=== PATIENT | female | born 1965 | race Caucasian/White ===

== ENCOUNTER 2021-04-12 13:46 | Emergency (ER) | payer SELFPAY ==
[~2021-04-12] VITALS: Ht 170.2 cm; Wt 66.7 kg
[~2021-04-12 13:46] MED LIST: ABILIFY5 MG PO; ASPIRIN325 MG PO; BUSPIRONE HCL15 MG PO; CARAFATE1 GM PO; CYCLOBENZAPRINE10 MG PO; DULOXETINE HCL60 MG PO; FOLIC ACID0.8 M1 PO; LAMICTAL100 MG PO; MINIPRESS1 MG PO; NEURONTIN300 MG PO; NORCO 5-325 TA1 EACH PO; OMEPRAZOLE40 MG PO; PERCOCET 5-3251 EACH PO; PRAVASTATIN SOD40 MG PO; PRINIVIL10 MG PO; PROAIR HFA8.5 GM INH; SALAGEN5 MG PO; TRAZODONE 50MG50 MG PO; ZANTAC150 MG PO
[2021-04-12 14:39] LABS: BASOPHIL 0.4 % (0-2); EOSINOPHIL 1.4 % (0-5); HCT 39.9 % (37.0-47.0); HGB 13.1 g/dl (12.5-16.0); LYMPHOCYTE 23.5 % (15-48); MCH 33.1 pg (25.0-31.0); MCHC 32.8 g/dL (32.0-36.0); MCV 100.8 fL (78.0-100.0); MONOCYTE 5.4 % (0-12); MPV 11.3 fL (6.0-9.5); NRBC 0; PLT 236 K/uL (150-400); RBC 3.96 M/uL (4.20-5.40); RDW 12.7 % (11.5-14.0); WBC 10.8 K/uL (4.0-10.5)
[2021-04-12 14:59] LABS: ALBUMIN 3.9 g/dL (3.4-5.0); BILIRUBIN - TOTAL 0.5 mg/dL (0.2-1.0); BUN/CREAT RATIO (CALC) 12.7 RATIO; CREATININE 1.1 mg/dL (0.51-0.95); GLOBULIN (CALCULATION) 2.9 g/dL; POTASSIUM 3.8 mmol/L (3.5-5.1); TOTAL PROTEIN 6.8 g/dL (6.4-8.2)
[2021-04-12 15:14] LABS: LACTIC ACID 1.5 mmol/L (0.4-1.9)
[2021-04-12 16:36] LABS: CORONAVIRUS 2019 SARS-COV-2 NEGATIVE (NEGATIVE); INFLUENZA A NAA NEGATIVE (NEGATIVE)
== END 2021-04-12 19:35 | disposition home or self-care (01) ==
LOC: FER 13:46
PROVIDERS: Internal Medicine
DX: E86.0 Dehydration (principal); E11.9 Type 2 diabetes mellitus without complications; I10 Essential (primary) hypertension; F17.200 Nicotine dependence, unspecified, uncomplicated; Z20.822 Contact with and (suspected) exposure to COVID-19
CPT/HCPCS: 36415; 80053; 83605; 84145; 85025; 87040; 99284; J7030; U0002